=== PATIENT | female | born 1975 | race Caucasian/White ===

== ENCOUNTER 2022-04-05 11:03 | Day surgery (SDC) | payer OTHER ==
[~2022-04-05] VITALS: Ht 162.6 cm; Wt 66.8 kg
[2022-04-05] MEDS ORDERED: SODIUM CHLORIDE 0.9% 1,000 ML IV ONE (12:30)
[2022-04-05 12:42] LABS: COVID AG,FIA SOURCE NASOPHARYNGEAL
[2022-04-05] MEDS ORDERED: SODIUM CHLORIDE 0.9% 1,000 ML ONE (13:01)
[2022-04-05] MEDS ORDERED: MIDAZOLAM HCL 5 MG/ML VIAL ONE (13:26)
[2022-04-05] MEDS ORDERED: FentaNYL CITRATE PF 100 MCG/2 ML VIAL ONE (13:27)
[2022-04-05] MEDS ORDERED: SODIUM CHLORIDE 0.9% 10 ML ONE (13:31)
[2022-04-05] MEDS ORDERED: FAMO20 PO (15:15)
== END 2022-04-05 14:50 | disposition home or self-care (01) ==
LOC: SURGERY 11:03
PROVIDERS: ATTEND Internal Medicine Gastroenterology
DX: K22.2 Esophageal obstruction (principal); K21.9 Gastro-esophageal reflux disease without esophagitis; K44.9 Diaphragmatic hernia without obstruction or gangrene; K29.70 Gastritis, unspecified, without bleeding; Z78.9 Other specified health status; Z79.899 Other long term (current) drug therapy; Z98.890 Other specified postprocedural states
CPT/HCPCS: 43249; 88305; 88312; 88313; 87426; C1769; J3010; J2250; J7030; C9803